=== PATIENT | female | born 1985 | race Caucasian/White ===

== ENCOUNTER 2021-08-12 17:56 | Emergency (ER) | payer SELFPAY ==
[2021-08-12 18:06] VITALS: BP 159/114; PULSE 109; RESP 16; TEMP 37.2; O2SAT 99
--- NOTE | 2021-08-12 19:07 | ED.PREGNANCY ---
HPI - General Chief complaint: ADMISSIONS SUPERVISOR Stated complaint: heavy period Time Seen by Provider: 08/12/21 18:40 Source: patient, family, RN notes reviewed, old records reviewed and party demonstrator Mode of arrival: ambulatory Limitations: no limitations History of Present Illness HPI Narrative: 36-year-old female who presents to [facility] with accompanied by her with complaints of increased vaginal bleeding since June. Patient reports that she had normal menses in May and in June she had menses which was heavier that usual with passing of clots of golf ball sized clots, She has had some continuous bleeding for the past 2 months. Patient reports that she had a Tele Doc appointment in July and was placed on MImvey which did slow bleeding down some for about 3 day but then bleeding has continued. Patient reported that she completed the Mimvey yesterday and today she has been saturating 4 maximum tampons per hour. Patient states that for the past 2 1/2 weeks she has been feeling lightheaded off and on. 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 MD Complaint: other (excessive vaginal bleeding) Onset (ago): month(s) Related Data Home Medications Medication Instructions Recorded Confirmed No Home Medications 08/12/21 08/12/21 Allergies Allergy/AdvReac Type Severity Reaction Status Date / Time cinnamon Allergy Unknown Unknown Unverified 08/12/21 18:40 Review of Systems Review of Systems: CONSTITUTIONAL: Denies fever, chills, or sweats. EYES: Denies visual changes, redness, or discharge. ENT: Denies rhinorrhea, congestion, sore throat, or otalgia. CARDIOVASCULAR: Denies chest pain, palpitations, or edema. RESPIRATORY: Denies cough or dyspnea. GASTROINTESTINAL: Denies abdominal pain, nausea, vomiting, or diarrhea. GENITOURINARY: Denies dysuria or hematuria positive for excessive vaginal bleeding SKIN: Denies rash or itching. MUSCULOSKELETAL: Denies back pain, joint pain, or myalgia. NEUROLOGIC: Denies headache, numbness, or weakness, reports dizziness or lightheadedness at times for past 2.5 weeks. PSYCHIATRIC: Denies anxiety or depression. [facility] Past Medical History Medical History (Updated 08/13/21 @ 16:48 by Jessica Valero NP) Asthma HELLP syndrome Preeclampsia Surgical History Surgical History (Updated 08/13/21 @ 16:44 by Jessica Valero NP) History of cholecystectomy History of tonsillectomy Hx of appendectomy Previous section Tubal ligation status Social History Social History (Updated 08/13/21 @ 16:45 by Jessica Valero NP) Smoking status: Never smoker Alcohol intake: current Alcohol use details: rare Substance use: never Living arrangements: with family Gender identity (if verbalized by the patient): Female Comments At time of signature agree with nursing documentation of social, medical, surgical ,and family history. There is no relevant family history pertinent to presenting complaint Exam Narrative: GENERAL: Well-appearing, well-nourished, and in no acute distress. HEAD: Normocephalic, atraumatic. EYES: PERRLA and EOMI.conjunctiva pale ENT: Nares clear, no rhinorrhea or epistaxis. Mucous membranes moist.TM's normal with good light reflex, throat pink with no lesions or exudates. tonsils absent NECK: Supple. no lymphadenopathy CHEST: Clear to auscultation. No respiratory distress.SAO2 99% on room air HEART: Regular rate and rhythm. No murmur heard. Normal peripheral pulses. ABDOMEN: Soft, nontender to palpation, nondistended, normal active bowel sounds.no back pain or tenderness on palpation EXTREMITIES: Normal range of motion. No edema. SKIN: Warm, dry, no rash. NEURO: No focal deficits. Alert and oriented x3. Course Course Level of Care: Express Care Visit Vital Signs Vital signs: Vital Signs Temperature 37.2 C 08/12/21 18:06 Pulse Rate 109 H
== END 2021-08-12 19:30 | disposition short-term general hospital (02) ==
PROVIDERS: Emergency Provider Registered Nurse
DX: N93.9 Abnormal uterine and vaginal bleeding, unspecified (principal); R42 Dizziness and giddiness; J45.909 Unspecified asthma, uncomplicated
CPT/HCPCS: 99202; G0463

== ENCOUNTER 2023-05-13 09:15 | Emergency (ER) | payer MEDICAID, SELFPAY ==
--- NOTE | ~2023-05-13 | XR_ITS ---
EXAMINATION: XR finger 4th LT min 2V DATE: 05/13/2023 09:40 INDICATION: Left hand fourth digit injury and pain. TECHNIQUE: 4 views of left hand fourth digit were obtained. COMPARISON: None. FINDINGS: There is a nondisplaced avulsion fracture of palmar base of fourth middle phalanx. Joint sp aces are normal. IMPRESSION: 1. Nondisplaced avulsion fracture of palmar base of fourth middle phalanx. Reviewed, dictated and finalized at location A.
[2023-05-13 09:24] VITALS: BP 171/113; PULSE 103; RESP 16; TEMP 36.5; O2SAT 98
--- NOTE | 2023-05-13 10:13 | ED.GENADULT ---
HPI - General Adult General Chief complaint: Extremity Injury, Upper Stated complaint: Finger Injury/Left Ring Finger Source: patient Mode of arrival: ambulatory Limitations: no limitations History of Present Illness HPI narrative: Patient presents for evaluation of pain in the 4th digit of the right hand. She indicates she fell out of bed early this morning and hit her left hand against a nightstand. She initially had a ?clicking? in that digit. She now reports pain, swelling and bruising. She rates her pain 2/10 in severity at rest an increased to 5/10 with manipulation of the digit. She denies any paresthesias. She is right-hand dominant. She is not taking any medication to assist with her symptoms. Related Data Home Medications Medication Instructions Recorded Confirmed No Home Medications 08/12/21 08/12/21 Allergies Allergy/AdvReac Type Severity Reaction Status Date / Time cinnamon Allergy Unknown Unknown Unverified 08/12/21 18:40 Review of Systems Review of Systems: CONSTITUTIONAL: Denies fever, chills, or sweats. EYES: Denies visual changes, redness, or discharge. ENT: Denies rhinorrhea, congestion, sore throat, or otalgia. CARDIOVASCULAR: Denies chest pain, palpitations, or edema. RESPIRATORY: Denies cough or dyspnea. GASTROINTESTINAL: Denies abdominal pain, nausea, vomiting, or diarrhea. GENITOURINARY: Denies dysuria or hematuria. SKIN: Reports bruising in the 4th digit of the left hand. MUSCULOSKELETAL: Reports pain and swelling in the 4th digit of the left hand. NEUROLOGIC: Denies headache, numbness, dizziness, or weakness. PSYCHIATRIC: Denies anxiety or depression. [facility] Past Medical History Medical History Asthma HELLP syndrome Preeclampsia Surgical History Surgical History History of cholecystectomy History of tonsillectomy Hx of appendectomy Previous section Tubal ligation status Family History Family History Mother Family history non-contributory Social History Social History Smoking status: Never smoker Alcohol intake: current Alcohol use details: rare Substance use: never Living arrangements: with family Gender identity (if verbalized by the patient): Female Sexual Orientation (if Verbalized by the Patient): Straight or Heterosexual Spiritual care concerns: No Exam Narrative: GENERAL: Well-appearing, well-nourished, and in no acute distress. HEAD: Normocephalic, atraumatic. EYES: PERRLA and EOMI. ENT: Nares clear, no rhinorrhea or epistaxis. Mucous membranes moist. Oropharynx without tonsillar hypertrophy exudate or other lesions. Bilateral TMs pearly duke nonbulging NECK: Supple. No adenopathy or masses. No carotid bruits or JVD CHEST: Clear to auscultation. No respiratory distress. No wheezes rales or rhonchi HEART: Regular rate and rhythm. No murmur heard. Normal peripheral pulses. ABDOMEN: Soft, nontender, nondistended, normal active bowel sounds. EXTREMITIES: There is tenderness at the PIP joint of the 5th digit of the left hand. There is swelling in the fourth digit of the left hand. 4/5 hand certified midwife strength on left. 5/5 hand certified midwife strength on right. SKIN: There is ecchymosis to the palmar aspect of the 4th digit left hand. NEURO: No focal deficits. Alert and oriented x3. PSYCH: Normal mood and affect. Course Course Emergency Course: This is a 38-year-old female who presented for evaluation of an injury to the 4th digit left hand. X-ray showed avulsion fracture of the middle phalanx of the 4th digit. Placed in an aluminum splint. Patient tolerated well. NSAIDs for pain. Declined super any other type of analgesics. Follow up with hand surgeon. Go to the emergency department for worsening
== END 2023-05-13 10:19 | disposition home or self-care (01) ==
PROVIDERS: Emergency Provider Nurse Practitioner; PCP Obstetrics & Gynecology
DX: S62.629A Displaced fracture of middle phalanx of unspecified finger, initial encounter for closed fracture (principal); W06.XXXA Fall from bed, initial encounter
CPT/HCPCS: 29130; 73140; 99214; G0463